=== PATIENT | male | born 1975 | race Caucasian/White ===

== ENCOUNTER 2021-07-23 11:34 | Outpatient (REF) | payer MEDICARE, MEDICAID, SELFPAY | END 2021-07-23 11:35 | disposition home or self-care (01) | LOC: HO.BBR 11:34 | PROVIDERS: PCP Physician Assistant Medical; Visit Provider Internal Medicine Hematology & Oncology | DX: D75.1 Secondary polycythemia (principal) | CPT/HCPCS: 85014; 85018; 99195 ==

== ENCOUNTER 2021-09-01 08:00 | Outpatient (REF) | payer MEDICARE, MEDICAID, SELFPAY | END 2021-09-01 08:01 | disposition home or self-care (01) | LOC: HO.BBR 08:00 | PROVIDERS: Visit Provider Internal Medicine Hematology & Oncology | DX: D75.1 Secondary polycythemia (principal) | CPT/HCPCS: 85018; 99195 ==

== ENCOUNTER 2021-12-30 09:19 | Outpatient (REF) | payer MEDICARE, MEDICAID, SELFPAY | END 2021-12-30 09:20 | disposition home or self-care (01) | LOC: HO.BBR 09:19 | PROVIDERS: Visit Provider Internal Medicine Hematology & Oncology | DX: D75.1 Secondary polycythemia (principal) | CPT/HCPCS: 85014; 85018; 99195 ==